=== PATIENT | female | born 1990 | race Caucasian/White ===

== ENCOUNTER 2022-10-11 21:26 | Emergency (ER) | payer BC, OTHER ==
[~2022-10-11] VITALS: Ht 157.5 cm; Wt 56.7 kg
[2022-10-11] MEDS ORDERED: HALOPERIDOL LACTATE INJ 5 MG/ML VIAL ONE (21:41)
[2022-10-11] MEDS ORDERED: HALOPERIDOL LACTATE INJ 5 MG/ML VIAL IM ONE (22:00)
[2022-10-11] MEDS ORDERED: diphenhydrAMINE HCL 50 MG/ML VIAL ONE (22:10)
[2022-10-11] MEDS ORDERED: LORAZEPAM INJ 2 MG/ML VIAL ONE (22:11)
[2022-10-11] MEDS ORDERED: IV NS 0.9% 1,000 ML BAG IV ONE (22:30)
[2022-10-11] MEDS ORDERED: diphenhydrAMINE HCL 50 MG/ML VIAL IM ONE (22:30)
[2022-10-11] MEDS ORDERED: LORAZEPAM INJ 2 MG/ML VIAL IM ONE (22:30)
[2022-10-11 22:31] LABS: BASOPHILS % (AUTO) 0.4 % (0.0-2.0); EOSINOPHILS % (AUTO) 0.2 % (0.0-6.0); HEMATOCRIT 38 % (33-45); HEMOGLOBIN 12.3 g/dL (11.5-14.8); LYMPHOCYTES # (AUTO) 1.3 K/uL (0.8-4.8); MEAN CORPUSCULAR HGB CONC 33 g/dl (31.0-36.0); MEAN CORPUSCULAR VOLUME 93 fL (82-100); MONOCYTES # (AUTO) 0.6 K/uL (0.1-1.30); MONOCYTES % (AUTO) 5.8 % (2.0-12.0); NEUTROPHILS # (AUTO) 7.8 K/uL (1.8-8.9); NEUTROPHILS % (AUTO) 80.6 % (43.0-81.0); PLATELET COUNT (AUTO) 282 K/uL (150-450); RED BLOOD CELL COUNT(AUTO) 4.07 MIL/uL (4.0-5.2); WHITE BLOOD COUNT (AUTO) 9.7 K/uL (4.3-11.0)
[2022-10-11 22:43] LABS: CALCIUM, SERUM 8.9 mg/dL (8.5-10.1); CREATININE 0.9 mg/dL (0.6-1.3); POTASSIUM 3.6 mmol/L (3.5-5.1)
[2022-10-11 22:50] LABS: ALBUMIN 4.3 g/dL (3.4-5.0); BILIRUBIN,DIRECT 0.1 mg/dL (0.0-0.2); BILIRUBIN,TOTAL 0.2 mg/dL (0.2-1.0); TOTAL PROTEIN, SERUM 7.5 g/dL (6.4-8.2)
--- NOTE | 2022-10-11 23:11 | NUR ---
COVID SWAB SENT TO LAB
[2022-10-11 23:36] LABS: BILIRUBIN,URINE NEGATIVE (NEGATIVE); COLOR,URINE YELLOW (YELLOW); LEUKOCYTE ESTERASE ,URINE NEGATIVE (NEGATIVE); NITRITE, URINE NEGATIVE (NEGATIVE); PROTEIN,URINE 1+ mg/dl (NEGATIVE); UGLUCOSE NEGATIVE (NEGATIVE); UROBILINOGEN,URINE 0.2 EU/dL (0.2)
[2022-10-11 23:44] LABS: BACTERIA,URINE Rare /HPF (None Seen); SQUAMOUS EPITHELIAL CELL,UR Moderate /HPF (None Seen)
--- NOTE | 2022-10-12 00:58 | NUR ---
CHARLEY OFFICER- OLIVIA RECEIVED PERMISSION FROM PT TO TAKE HOUSE KEYS AND PROVIDE TO FRIEND ARON.
--- NOTE | 2022-10-12 02:50 | NUR ---
FATHER, SEAN VILLALPANDO [phone]. PER FATHER, PT UNDER THE PSYCHIACTRIC CARE OF DR BURNETTE AND DR SIFUENTES OFFICE NUMBER [phone]. EMERGENCY LINE [phone].PER FATHER, PT IS ACTIVELY IN TREATMENT AND IS INDEPENDENT MOST OF THE TIME. FATHER ALSO STATES THAT PT'S DOG IS BEING TAKEN CARE OF.
--- NOTE | 2022-10-12 03:32 | NUR ---
PT ALERT AND VERBALLY RESPONSIVE. DENIED SI/HI TO ME AND REPORTED SHE TEXTED HER BOY FRIEND TO "GRAB HIS ATTENTION"
--- NOTE | 2022-10-12 05:09 | NUR ---
- ([facility] [place] LUCIA HASKINS - 2ND PRIORITY CONTACT INFO
--- NOTE | 2022-10-12 07:33 | NUR ---
Patient discharged to home in stable condition. Written and verbal after care instructions given. Patient verbalizes understanding of instruction.
[2022-10-12 09:46] VITALS: BP 132/88
== END 2022-10-12 09:46 | disposition home or self-care (01) ==
LOC: ER 21:28
DX: F29 Unspecified psychosis not due to a substance or known physiological condition (principal); R45.1 Restlessness and agitation; F10.929 Alcohol use, unspecified with intoxication, unspecified; Z20.822 Contact with and (suspected) exposure to COVID-19; Y90.7 Blood alcohol level of 200-239 mg/100 ml
CPT/HCPCS: 99285; 96372 ×2; 85025; 80048; 80076; 81001; 36415; 87426; 80143; 80320; 80307; J2060; J1200; J1630; C9803; G0480